=== PATIENT | male | born 1980 | race Caucasian/White ===

== ENCOUNTER 2024-09-08 07:28 | Emergency (ER) | payer BC, OTHER ==
[~2024-09-08] VITALS: Ht 180.3 cm; Wt 109.3 kg
[2024-09-08 08:28] VITALS: BP 138/87; PULSE 77; RESP 17; TEMP 98.7; O2SAT 97
--- NOTE | 2024-09-08 08:43 | ED.PDOC ---
Back pain HPI HPI Comments 44-year-old male patient presents to the ER for right lower back pain x4 days. Patient reports that the pain radiates down the right leg. Patient denies numbness tingling or sharp pain right leg. Patient denies any loss of bowel or bladder control. Patient denies any trauma to the back. Patient reports that he was at work and doing heavy lifting. Patient reports that the pain started throughout the day and then increased over the next morning. Patient has tried ibuprofen, Icy Hot and [place]. Patient has tried using heat and ice. Patient reports that the tiger balm slightly reduce his pain Chief Complaint: Back Pain Time Seen by MD: 08:24 Primary Care Provider: DENIES Reviewed Notes: Nurses Notes, Medications, Allergies Allergies: Coded Allergies: NO KNOWN ALLERGIES (Unverified , 09/08/24) Home Meds Active Scripts Dexamethasone Sodium Phosphate (Decadron) 4 Mg/1 Ml Ij, 4 MG IM BID for 5 Days, #10 TAB 0 Refills Prov:VERNON BARRETT [facility] 09/08/24 Baclofen (Baclofen) 20 Mg Tab, 20 MG PO TID for 14 Days, #42 TAB 0 Refills Prov:VERNON BARRETT [facility] 09/08/24 Ibuprofen (Ibuprofen) 800 Mg Tab, 800 MG PO Q8HP PRN for 30 Days, #90 TAB 0 Refills Prov:VERNON BARRETT [facility] 09/08/24 Information Source: Patient Mode of Arrival: Ambulatory Past Medical History PAST MEDICAL HISTORY: Denies Surgical History: Denies all surgeries Family History Family History: Reviewed,noncontributory to illness Social History Smoker: Non-Smoker Alcohol: Denies ETOH Use Drugs: Denies Drug Use Lives In: Home Constitutional: denies: chills, diaphoresis, fatigue, fever, malaise, sweats, weakness, others EENTM: denies: blurred vision, double vision, ear bleeding, ear discharge, ear drainage, ear pain, ear ringing, eye pain, eye redness, hearing loss, mouth pain, mouth swelling, nasal discharge, nose bleeding, nose congestion, nose pain, photophobia, tearing, throat pain, throat swelling, voice changes, others Respiratory: denies: cough, hemoptysis, orthopnea, SOB at rest, shortness of breath, SOB with excertion, stridor, wheezing, others Cardiovascular: denies: chest pain, dizzy spells, diaphoresis, Dyspnea on exer tion, edema, irregular heart beat, left arm pain, lightheadedness, palpitations, PND, syncope, others Gastrointestinal: denies: abdomen distended, abdominal pain, blood streaked bowels, constipated, diarrhea, dysphagia, difficulty swallowing, hematemesis, melena, nausea, poor appetite, poor fluid intake, rectal bleeding, rectal pain, vomiting, others Genitourinary: denies: burning, dysuria, flank pain, frequency, hematuria, incontinence, penile discharge, penile sore, pain, testicle pain, testicle swelling, urgency, others Neurological: denies: dizziness, fainting, headache, left sided numbness, left sided weakness, numbness, paresthesia, pre-existing deficit, right sided numbness, right sided weakness, seizure, speech problems, tingling, tremors, weakness, others Musculoskeletal: reports: back pain, muscle pain Integumetry: denies: bruises, change in color, change in hair/nails, dryness, laceration, lesions, lumps, rash, wounds, others Allergic/Immunocompromised: denies: Difficulty Healing, Frequent Infections, Hives, Itching, others Hematologic/Lymphatic: denies: anemia, blood clots, easy bleeding, easy bruising, swollen glands, others Endocrine: denies: excessive hunger, excessive sweating, excessive thirst, excessive urination, flushing, intolerance to cold, intolerance to heat, unexplained weight gain, unexplained weight loss, others Psychiatric: denies: anxiety, bipolar disorder, depression, hopeless, panic disorder, schizophrenia, sleepless, suicidal, others All Other Systems: Reviewed and Negative Physical Exam General Appearance: No Apparent Distress, Normal HEENT: Normal ENT Inspection, Pharynx Normal, TMs Normal Neck: Full Range of Motion, Non-Tender, Normal, Normal Inspection Respiratory: Chest Non-Tender, Lungs Clear, No Accessory Muscle Use, No Respiratory Distress, Normal Breath Sounds Cardiovascular: No Edema, No JVD, No Murmur, No Gallop, Normal Peripheral Pulses, Regular Rate/Rhythm Breast Exam: Deferred Gastrointestinal: No Organomegaly, Non Tender, No Pulsatile Mass, Normal Bowel Sounds, Soft Genitalia: Deferred Pelvic: Deferred Rectal: Deferred Extremities: No calf tenderness, Normal capillary refill, Normal inspection, Normal range of motion, Non-tender, No pedal edema Musculoskeletal : Location: Right Extremity Location: Back (Bilateral lower back tenderness greatest on the right, no erythema or ecchymosis, no inflamation no deformity) Apperance: Tenderness: Moderate (Right lower back) Neurologic: Alert, coffee sommelier II-XII nml as Tested, No Motor Deficits, Normal Affect, Normal Mood, No Sensory Deficits Cerebellar Function: Normal Reflexes: Normal Skin: Dry, Normal Color, Warm Lymphatic: No Adenopathy Was a procedure done? Was a procedure done?: No Back Pain Differential Dx Differential Diagnosis: Fracture, Musculoskeletal Pain, Pyelonephritis X-Ray, Labs, Meds, VS Vital Signs Date Time Temp Pulse Resp B/P (MAP) Pulse Ox O2 Delivery O2 Flow Rate FiO2 09/08/24 08:28 98.7 77 17 138/87 (104) 98 98.7 09/08/24 08:28 77 17 97 Room Air 09/08/24 07:38 98.3 75 18 139/90 (106) 97 Current Medications Medications (Trade) Dose Ordered Sig/Jeovanny Route Start Time Stop Time Status Last Admin Ketorolac Tromethamine (Toradol Injection) 60 mg ONCE ONCE IM 09/08/24 08:45 09/08/24 08:46 DC 09/08/24 08:58 Methylprednisolone Sodium Succinate (Solu Medrol) 125 mg ONCE ONCE IM 09/08/24 08:45 09/08/24 08:46 DC 09/08/24 08:56 PATIENT: MARLENE MICHAEL ACCT: [id number] UNIT: [id number] : 1980 LOC: ER ROOM / BED: / AGE / SEX: 44 / M ADM STATUS: REG ER SERVICE [id number] ORDERING PHYSICIAN: VERNON BARRETT PROCEDURE(s): LS - LUMBAR SPINE 4+ VIEW REASON: lumbar back pain ORDER NUMBER(s): [id number], ACCESSION NUMBER(s): [id number] CLINICAL INDICATION: lumbar back pain TECHNIQUE: XY LUMBAR SPINE 4+ VIEW Comparison: None FINDINGS/IMPRESSION: There is no evidence of acute fracture or dislocation. Multilevel degenerative changes most L4-L5 neural foraminal and spinal canal stenosis. The alignment is anatomical. There is no radiopaque foreign body. ATED BY: BERNY ADHIKARI MD DICTATED DATE/TIME: 09/08/24919 SIGNED BY: BERNY ADHIKARI MD SIGNED DATE/TIME: 09/08/24919 CC: X-Ray, Labs, Meds, VS Comment Lumbar x-ray performed in office and reflects lumbar foraminal and spinal stenosis. Patient advised to follow up with PCP for referral to pain management for corticosteroid injections and referral for ortho On re-evaluation patient has symptomatic improvement. Patient is stable for discharge at this time. All test results and diagnostic imaging have been interpreted. All diagnostic findings, discharge care, and education instruction provided to the patient. Follow-up with PCP in 2-3 days Patient verbalized understanding, discharge instructions and agrees to treatment plan Vital signs are stable Patient is ambulatory Patient advised of which symptoms necessitate a return visit to the emergency room. Patient to return emergency room for any new worsening symptoms. Patient is aware that the purpose of this visit is for an acute medical emergency requiring emergent stabilization. Chronic conditions, including malignancies have not been ruled out. Patient is instructed to follow up with PCP as directed for continued care and workup. If unable to arrange follow up, patient is to return to the emergency room for reassessment. Patient was given verbal and written discharge instructions and acknowledges understanding Time of 1ST Reevaluation: 09:25 Reevaluation 1ST: Improved Patient Education/Counseling: Diagnosis, Treatment, Prognosis Family Education/Counseling: Diagnosis, Treatment, Prognosis Departure 1 Departure Time of Disposition: 09:48 Impression: Primary Impression: Lumbar sprain Additional Impression: Lumbar stenosis Disposition: 01 HOME / SELF CARE / HOMELESS Condition: Stable e-Prescriptions Dexamethasone Sodium Phosphate (Decadron) 4 Mg/1 Ml Ij 4 MG IM BID for 5 Days, #10 TAB 0 Refills Prov: NENAVERNON [employer] 09/08/24 Baclofen (Baclofen) 20 Mg Tab 20 MG PO TID for 14 Days, #42 TAB 0 Refills Prov: NENAVERNON [employer] 09/08/24 Ibuprofen (Ibuprofen) 800 Mg Tab 800 MG PO Q8HP PRN for 30 Days, #90 TAB 0 Refills Prov: REJIWangVERNON [facility] 09/08/24 Discharged With: Self Critical Care Note Critical Care Time?: No Stability Stability form required: No Heart Score Heart Score: Heart Score Response (Comments) Value History N/A 0 EKG N/A 0 Age N/A 0 Risk Factors N/A 0 Troponin N/A 0 Total 0 VERNON BARRETT [facility] Sep 08, 2024 08:43
[2024-09-08] MEDS: methylPREDNISolone SOD SUCC 125 MG/2 ML VL IM ONE (08:56)
[2024-09-08] MEDS: KETOROLAC TROMETH 60MG/2ML VIAL IM ONE (08:58)
--- NOTE | 2024-09-08 09:22 | DVH ---
CLINICAL INDICATION: lumbar back pain TECHNIQUE: XY LUMBAR SPINE 4+ VIEW Comparison: None FINDINGS/IMPRESSION: There is no evidence of acute fracture or dislocation. Multilevel degenerative changes most L4-L5 neural foraminal and spinal canal stenosis. The alignment is anatomical. There is no radiopaque foreign body.
[2024-09-08] MEDS ORDERED: BACL20TA PO (09:53)
[2024-09-08] MEDS ORDERED: IBUP-1456 PO (09:53)
[2024-09-08] MEDS ORDERED: DEX4I IM (09:53)
== END 2024-09-08 10:10 | disposition home or self-care (01) ==
LOC: ER 07:28
DX: S33.5XXA Sprain of ligaments of lumbar spine, initial encounter (principal); M48.061 Spinal stenosis, lumbar region without neurogenic claudication; Z79.899 Other long term (current) drug therapy; X50.0XXA Overexertion from strenuous movement or load, initial encounter; Y93.89 Activity, other specified; Y92.89 Other specified places as the place of occurrence of the external cause; Y99.8 Other external cause status
CPT/HCPCS: 72110; 96372; 99284; J1885; J2919